=== PATIENT | female | born 1995 | race American Indian/Alaskan Native ===

== ENCOUNTER 2018-02-03 11:31 | Emergency (ER) | payer OTHER ==
[2018-02-03 11:52] VITALS: BP 117/78
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
== END 2018-02-03 14:08 | disposition home or self-care (01) ==
LOC: ED 11:31
DX: M25.511 Pain in right shoulder (principal); M25.512 Pain in left shoulder; M54.9 Dorsalgia, unspecified; V87.7XXA Person injured in collision between other specified motor vehicles (traffic), initial encounter; Y93.89 Activity, other specified; Y99.8 Other external cause status; Y92.410 Unspecified street and highway as the place of occurrence of the external cause
CPT/HCPCS: 99282

== ENCOUNTER 2018-03-09 13:37 | Emergency (ER) | payer OTHER ==
[2018-03-09 13:44] VITALS: BP 119/79
[2018-03-09] MEDS ORDERED: DELTASONE PO ONE (16:05)
--- NOTE | 2018-03-09 16:09 | Emergency Department Report ---
HPI - General Chief Complaint: Skin Rash Time Seen by Provider: 03/09/18 15:25 - HPI HPI: 22-year-old female presents to the emergency department with a complaint of a rash over the past 1-2 days. She thinks it might be an allergic reaction from a new shampoo. Patient does have a history of eczema. She has had small raised itchy bumps to her chest, breasts, upper abdomen, upper back, neck and previously was on her face but that has since improved. She tried some Benadryl for symptoms without any relief. She denies any swelling of the lips, tongue, throat, shortness of breath, fever, nausea or vomiting. No recent travel or sick contacts at home. She does not have a primary care doctor as she recently moved here. ED Past Medical Hx - Past Medical History Previous Medical History?: No - Surgical History Past Surgical History?: No - Social History Smoking Status: Never Smoker Substance Use Type: None - Medications Home Medications: Home Medications Medication Instructions Recorded Confirmed Last Taken Type Cyclobenzaprine [Flexeril] 10 mg PO TID PRN #12 tablet 02/03/18 Unknown Rx Ibuprofen [Motrin] 600 mg PO Q8H PRN #20 tablet 02/03/18 Unknown Rx predniSONE [Deltasone] 20 mg PO BID #10 tab 03/09/18 Unknown Rx ED Review of Systems ROS: Stated complaint: RASH Other details as noted in HPI Comment: All other systems reviewed and negative Constitutional: denies: chills, fever Eyes: denies: eye pain, eye discharge, vision change ENT: denies: ear pain, throat pain Respiratory: denies: cough, shortness of breath, wheezing Cardiovascular: denies: chest pain, palpitations Gastrointestinal: denies: abdominal pain, nausea, diarrhea Genitourinary: denies: urgency, dysuria, discharge Musculoskeletal: denies: back pain, joint swelling, arthralgia Skin: rash. denies: pruritus Neurological: denies: headache, weakness, paresthesias Physical Exam - Physical Exam Vital Signs: Vital Signs 03/09/18 13:40 Temperature 98.4 F Pulse Rate 89 Respiratory 16 Rate Blood Pressure 119/79 O2 Sat by Pulse 97 Oximetry Physical Exam: GENERAL: The patient is well-developed well-nourished. HENT: Normocephalic. Atraumatic. Patient has moist mucous membranes. EYES: Extraocular motions are intact. NECK: Supple. No meningitic signs are noted. There is no adenopathy noted. CHEST/LUNGS: Clear to auscultation. There is no respiratory distress noted. HEART/CARDIOVASCULAR: Regular. There is no tachycardia. There is no murmur. ABDOMEN: Abdomen is soft, nontender. Patient has normal bowel sounds. There is no abdominal distention. SKIN: Patient has any very small flesh-colored papules to the bilateral and anterior neck, chest, abdomen, breasts, upper back. In the neck area there is also some scaling of the skin and the papules are often closely grouped together. There is no erythema, weeping, drainage. NEURO: The patient is awake, alert, and oriented. The patient is cooperative. The patient has no focal neurologic deficits. The patient has normal speech. MUSCULOSKELETAL: There is no tenderness or deformity. There is no evidence of acute injury. ED Course Vital Signs 03/09/18 13:40 Temperature 98.4 F Pulse Rate 89 Respiratory 16 Rate Blood Pressure 119/79 O2 Sat by Pulse 97 Oximetry ED Medical Decision Making - Medical Decision Making The patient's rash could be eczematous dermatitis versus allergic reaction or a combination of the 2. She does not appear to be in any distress. Vital signs stable included being afebrile. She will be placed on steroids and encouraged to take some Benadryl. She has been given some referrals for primary care and dermatology. She was instructed to return to the emergency Department with any worsening of her symptoms, development of fever, or any acute distress. - Differential Diagnosis eczema, dermatitis, urticaria Critical Care Time: No Critical care attestation.: If time is entered above; I have spent that time in minutes in the direct care of this critically ill patient, excluding procedure time. ED Disposition Clinical Impression: Dermatitis, Rash Disposition: DC-01 TO HOME OR SELFCARE Is pt being admited?: No Condition: Stable Instructions: Eczema (ED), Acute Rash (ED) Additional Instructions: Please follow up with a primary care physician in the next 2 days. I have also given you a referral for a local office automation technician. Start with your steroid prescription tomorrow. He can also take Benadryl for itching or allergic reaction. Return to the emergency Department with any worsening of her symptoms , involvement of the face, development of shortness of breath or fever, or with any acute distress. Prescriptions: predniSONE [Deltasone] 20 mg PO BID #10 tab Referrals: PRIMARY CAREMD [Primary Care Provider] - 3-5 Days ALBARO NEFF MD [Staff Physician] - 3-5 Days [facility] [Outside] - 3-5 Days Time of Disposition: 16:09
== END 2018-03-09 16:20 | disposition home or self-care (01) ==
LOC: ED 13:37
DX: L30.9 Dermatitis, unspecified (principal); R21 Rash and other nonspecific skin eruption
CPT/HCPCS: 99282; J7512

== ENCOUNTER 2022-03-19 10:13 | Emergency (ER) | payer BC ==
[2022-03-19] MEDS ORDERED: ZIPRASIDONE MESYLATE 20 MG VIAL IM ONE (12:15)
--- NOTE | 2022-03-19 14:32 | XRay Report ---
CHEST 2 VIEWS INDICATION / CLINICAL INFORMATION: COUGH, CONGESTION. COMPARISON: None available. FINDINGS: SUPPORT DEVICES: None. HEART / MEDIASTINUM: No significant abnormality. LUNGS / PLEURA: No significant pulmonary or pleural abnormality. No pneumothorax. ADDITIONAL FINDINGS: No significant additional findings. IMPRESSION: 1. No acute findings. Signer Name: Steve Varner MD Signed: 03/19/2022 2:28 PM Workstation Name: [id number]
--- NOTE | 2022-03-19 19:28 | Emergency Department Report ---
ED Shortness of Breath HPI - General Chief Complaint: Dyspnea/Respdistress Stated Complaint: CHEST PAIN Time Seen by Provider: 03/19/22 19:20 Source: patient Mode of arrival: Ambulatory Limitations: No Limitations - History of Present Illness Initial Comments: Coughing since . Got 2 Covid tests done on , both neg. c/o chest when coughing. MD Complaint: shortness of breath, cough -: days(s) Consistency: intermittent Improves With: nothing Context: recent URI - Related Data Home Oxygen Therapy: No Previous Rx's Medication Instructions Recorded Last Taken Type Cyclobenzaprine [Flexeril] 10 mg PO TID PRN #12 tablet 02/03/18 Unknown Rx Ibuprofen [Motrin] 600 mg PO Q8H PRN #20 tablet 02/03/18 Unknown Rx predniSONE [Deltasone] 20 mg PO BID #10 tab 03/09/18 Unknown Rx Allergies Allergy/AdvReac Type Severity Reaction Status Date / Time No Known Allergies Allergy Unverified 02/03/18 11:48 ED Review of Systems ROS: Stated complaint: CHEST PAIN Other details as noted in HPI Constitutional: denies: chills, fever Eyes: denies: eye pain, eye discharge, vision change ENT: denies: ear pain, throat pain Respiratory: denies: cough, shortness of breath, wheezing Cardiovascular: denies: chest pain, palpitations Endocrine: no symptoms reported Gastrointestinal: denies: abdominal pain, nausea, diarrhea Genitourinary: denies: urgency, dysuria, discharge Musculoskeletal: denies: back pain, joint swelling, arthralgia Skin: denies: rash, lesions Neurological: denies: headache, weakness, paresthesias Psychiatric: denies: anxiety, depression Hematological/Lymphatic: denies: easy bleeding, easy bruising ED Past Medical Hx - Past Medical History Previous Medical History?: No Hx Hypertension: No - Social History Smoking Status: Never Smoker Substance Use Type: None - Medications Home Medications: Home Medications Medication Instructions Recorded Confirmed Last Taken Type Cyclobenzaprine [Flexeril] 10 mg PO TID PRN #12 tablet 02/03/18 Unknown Rx Ibuprofen [Motrin] 600 mg PO Q8H PRN #20 tablet 02/03/18 Unknown Rx predniSONE [Deltasone] 20 mg PO BID #10 tab 03/09/18 Unknown Rx ED Physical Exam - General Limitations: No Limitations General appearance: alert, in no apparent distress - Head Head exam: Present: atraumatic, normocephalic - Eye Eye exam: Present: normal appearance - ENT ENT exam: Present: mucous membranes moist - Neck Neck exam: Present: normal inspection - Respiratory Respiratory exam: Present: normal lung sounds bilaterally. Absent: respiratory distress - Cardiovascular Cardiovascular Exam: Present: regular rate, normal rhythm. Absent: systolic murmur, diastolic murmur, rubs, gallop - GI/Abdominal GI/Abdominal exam: Present: soft, normal bowel sounds - Extremities Exam Extremities exam: Present: normal inspection - Back Exam Back exam: Present: normal inspection - Neurological Exam Neurological exam: Present: alert, oriented X3 - Psychiatric Psychiatric exam: Present: normal affect, normal mood - Skin Skin exam: Present: warm, dry, intact, normal color. Absent: rash ED Course Vital Signs 03/19/22 10:26 Temperature 98.0 F Pulse Rate 92 H Respiratory 16 Rate Blood Pressure 113/70 O2 Sat by Pulse 97 Oximetry ED Medical Decision Making - Radiology Data Radiology results: report reviewed, image reviewed - Medical Decision Making pt wanetd x ray Critical care attestation.: If time is entered above; I have spent that time in minutes in the direct care of this critically ill patient, excluding procedure time. ED Disposition Clinical Impression: Cough, URI (upper respiratory infection) Disposition: 01 HOME / SELF CARE / HOMELESS Is pt being admited?: No Does the pt Need Aspirin: No Condition: Stable Instructions: Cough, Adult, [id number] Referrals: PRIMARY CARE, [Primary Care Provider] - 3-5 Days
[2022-03-19 20:15] VITALS: BP 116/72
--- NOTE | 2022-03-22 18:38 | Electrocardiograph Report ---
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
== END 2022-03-19 20:15 | disposition home or self-care (01) ==
LOC: ED 10:13
DX: J06.9 Acute upper respiratory infection, unspecified (principal); R05.9 Cough, unspecified; Z79.899 Other long term (current) drug therapy
CPT/HCPCS: 71046; 93005; 99283; J3486